=== PATIENT | female | born 1945 | race Caucasian/White ===

== ENCOUNTER → 2016-07-31 | Outpatient (CLI) | payer MEDICARE, BC | LOC: MC.RAD 13:00 | DX: Z12.31 Encounter for screening mammogram for malignant neoplasm of breast (principal); Z80.3 Family history of malignant neoplasm of breast ==

== ENCOUNTER → 2017-10-28 | Outpatient (CLI) | payer MEDICARE, BC | LOC: MC.RAD 10:50 | DX: Z12.31 Encounter for screening mammogram for malignant neoplasm of breast (principal); N63.10 Unspecified lump in the right breast, unspecified quadrant ==

== ENCOUNTER → 2018-11-15 | Outpatient (CLI) | payer MEDICARE, BC | LOC: MC.RAD 11:40 | DX: Z12.31 Encounter for screening mammogram for malignant neoplasm of breast (principal) ==

== ENCOUNTER → 2019-11-20 | Outpatient (CLI) | payer MEDICARE, BC | LOC: MC.RAD 14:21 | DX: Z12.31 Encounter for screening mammogram for malignant neoplasm of breast (principal) ==

== ENCOUNTER → 2021-07-30 | Outpatient (CLI) | payer MEDICARE, BC | LOC: MC.RAD 11:00 | DX: Z12.31 Encounter for screening mammogram for malignant neoplasm of breast (principal) ==

== ENCOUNTER 2022-06-07 11:19 | Emergency (ER) | payer MEDICARE, BC ==
[~2022-06-07] VITALS: Ht 160 cm; Wt 75.0 kg
[2022-06-07 11:24] VITALS: BP 145/68; TEMP 98.1
[2022-06-07 14:08] VITALS: PULSE 68
== END 2022-06-07 14:10 | disposition home or self-care (01) ==
LOC: COL.ER 11:19
DX: S43.005A Unspecified dislocation of left shoulder joint, initial encounter (principal); Z96.612 Presence of left artificial shoulder joint; W01.0XXA Fall on same level from slipping, tripping and stumbling without subsequent striking against object, initial encounter; Y92.093 Driveway of other non-institutional residence as the place of occurrence of the external cause

== ENCOUNTER → 2023-08-27 | Outpatient (CLI) | payer MEDICARE, BC ==
[~2023-08-27] VITALS: Ht 160 cm; Wt 75.0 kg
[~2023-08-27] MED LIST: AMITRIPTYLINE H50 M1 PO; ANTI-DIARRHEAL2 MG PO; COZAAR100 MG PO; DESYREL 50MG50 MG PO; EUTHYROX75 MCG PO; GLUCOTROL10 MG PO; LASIX 20MG TABL20 MG PO; LEXAPRO 10MG10 MG PO; MOBIC 7.5MG7.5 MG PO; NEURONTIN300 MG/CAP PO; NEURONTIN600 MG/TAB PO; PRAVACHOL80 MG PO; TOPROL XL 50MG50 MG PO; VICTOZA6 MG/ML SQ
[2023-08-27 12:22] VITALS: BP 148/72; PULSE 62; TEMP 97.8
[2023-08-27 13:30] VITALS: BP 128/81; PULSE 62
== END ==
LOC: COL.RAD 08:31
DX: L76.34 Postprocedural seroma of skin and subcutaneous tissue following other procedure (principal)